=== PATIENT | male | born 1925 | race Caucasian/White ===

== ENCOUNTER 2017-03-28 07:10 | Day surgery (SDC) | payer MEDICARE, BC ==
[~2017-03-28 07:10] MED LIST: Lactated Ringers 1,000 ML IV SCH; Lidocaine 1%/Sod Bicarbonate in NS 8.4% 1 ML Syringe IV PRN; Sodium Chloride 0.9% 10 ML Syringe FLUSH PRN
[2017-03-28] MEDS ORDERED: Heparin Sodium 5,000 Units/ML Vial ONE (07:13)
[2017-03-28] MEDS ORDERED: Sodium Chloride 0.9% 10 ML Syringe FLUSH PRN (07:22)
[2017-03-28] MEDS ORDERED: Lidocaine 1%/Sod Bicarbonate in NS 8.4% 1 ML Syringe PRN (07:22)
--- NOTE | 2017-03-28 07:27 | PCM.PREANE ---
Preanesthetic Assessment - Anesthesia/Transfusion/Family Hx Anesthesia History: Prior Anesthesia Without Reaction Other Type of Anesthesia Reaction Comment: DENIES ANY PROBLEMS WITH ANESTHESIA Family History of Anesthesia Reaction: No Transfusion History: Prior Transfusion Without Reaction Intubation History: Unknown - Review of Systems General: No Symptoms Pulmonary: No Symptoms (Former smoker: quit 1950), Shortness of Breath Cardiovascular: No Symptoms (History of atrial fibrillation/ off plavix since Tuesday03/23/17/CHF/History of HTN/11/24/[address] elevated [place]) Gastrointestinal: No Symptoms (GERD) Neurological: Tingling (arthritis in fingers) Other: Reports: None (History of anemia/History of Hepatitis C/History of Stage IV kidney disease), Easy Bleeding, Easy Bruising, Thyroid Problems (Hypothyroid) , Sinus Problem (seasonal allergies), Anxiety - Physical Assessment NPO Status Date: 03/27/17 NPO Status Time: 19:30 Pulse: 71 O2 Sat by Pulse Oximetry: 99 Respiratory Rate: 16 Blood Pressure: 145/104 Temperature: 36.6 C Height: 1.75 m Weight: 63.503 kg ASA Class: 3 Mental Status: Alert & Oriented x3 Airway Class: Mallampati = 2 Dentition: Reports: Normal Dentition, [place](s), Caries Thyro-Mental Finger Breadths: 3 Mouth Opening Finger Breadths: 3 ROM/Head Extension: Full Lungs: Clear to Auscultation, Normal Respiratory Effort Cardiovascular: Irregular Rhythm (murmur noted.) - Lab Values: Lab values reviewed and noted. Gently IV MAC appropriate with known lab values that are outside of normal limits. Hgb: 8.6 Hct: 25.5 Platelets: 100,000 BUN: 85 Cr: 3.46 Na: 132 K: 3.5 CO2: 22 Cl: 97 glucose: 85 - Imaging/EKG Impressions: EK10/26/2016 SB rate 54, LBBB Echocardiogram: EF: 40-45% - Allergies Allergies/Adverse Reactions: Allergies Allergy/AdvReac Type Severity Reaction Status Date / Time Sulfa (Sulfonamide Allergy Cannot Verified 03/25/17 11:40 Antibiotics) Remember temazepam [From Restoril] Allergy Cannot Verified 03/25/17 11:40 Remember trazodone Allergy Cannot Verified 03/25/17 11:40 Remember - Anesthesia Plan Pre-Op Medication Ordered: Beta Kelly Beta Kelly: Carvedilol Med Last Dose Date: 03/28/17 Med Last Dose Time: 06:00 - Acknowledgements Anesthesia Type Planned: MAC Pt an Appropriate Candidate for the Planned Anesthesia: Yes Alternatives and Risks of Anesthesia Discussed w Pt/Guardian: Yes Pt/Guardian Understands and Agrees with Anesthesia Plan: Yes PreAnesthesia Questionnaire HEENT History: Reports: Cataract, Impaired Vision, Other (See Below) Other HEENT History: blind right eye, hard of hearing, wears glasses, has hearing aids Cardiovascular History: Reports: Afib, Heart Failure, Hypertension Respiratory History: Reports: None Gastrointestinal History: Reports: Hepatitis Genitourinary History: Reports: Renal Disease, Other (See Below) Other Genitourinary History: renal failure, CKD IV, chronic prostatitis [employer] History: Reports: None Neurological History: Reports: None Psychiatric History: Reports: None Endocrine/Metabolic History: Reports: None Hematologic History: Reports: Anemia, Other (See Below) Other Hematologic History: pancytopenia Immunologic History: Reports: None Oncologic (Cancer) History: Reports: None Dermatologic History: Reports: Other (See Below) Other Dermatologic History: psorosis - Past Surgical History HEENT Surgical History: Reports: Cataract Surgery Cardiovascular Surgical History: Reports: None Respiratory Surgical History: Reports: None GI Surgical History: Reports: Appendectomy, Colonoscopy, EGD, Hernia Repair/ Other Female Surgical History: Reports: None Male Surgical History: Reports: None Endocrine Surgical History: Reports: None Neurological Surgical History: Reports: None Musculoskeletal Surgical History: Reports: Knee Replacement, Other (See Below) Other Musculoskeletal Surgeries/Procedures:: right total knee, right rotator cuff repair, kay in leg Oncologic Surgical History: Reports: Bone Marrow Aspiration Dermatological Surgical History: Reports: None - SUBSTANCE USE Smoking Status *Q: Former Smoker Days Per Week of Alcohol Use: 0 Number of Drinks Per Day: 0 Total Drinks Per Week: 0 Recreational Drug Use History: No - HOME MEDS Home Medications: Home Meds ALPRAZolam [Xanax] 0.25 mg PO TID PRN 03/25/17 [History] Acetaminophen/Diphenhydramine [Tylenol Pm Ex-Strength Caplet] 0.5 tab PO BEDTIME PRN 03/25/17 [History] Ascorbate Calcium [Vitamin C] 500 mg PO DAILY 03/25/17 [History] Brimonidine Tartrate/Timolol [Combigan 0.2%-0.5% Eye Drops] 1 drop EYEBOTH TID 03/25/17 [History] Brinzolamide [Azopt 1% Ophth Susp] 1 drop EYEBOTH BID 03/25/17 [History] Calcium Carbonate [Tums] 500 mg PO BID 03/25/17 [History] Carvedilol [Coreg] 3.125 mg PO DAILY 03/25/17 [History] Clopidogrel [Plavix] 75 mg PO DAILY 03/25/17 [History] Ferrous Sulfate 325 mg PO BID 03/25/17 [History] Fluticasone Propionate [Flonase Allergy Relief] 1 spray NASBOTH BID PRN [History] Furosemide 40 mg PO QPM 03/25/17 [History] Furosemide [Lasix] 80 mg PO QAM 03/25/17 [History] Hydrocortisone [Cortisone] 1 applic TOP ASDIRECTED PRN 03/25/17 [History] Isosorbide Mononitrate [Imdur] 30 mg PO DAILY 03/25/17 [History] Levothyroxine [Synthroid] 50 mcg PO DAILY 03/25/17 [History] Lutein/Minerals/Vit A,C & E [Ocuvite] 1 tab PO DAILY 03/25/17 [History] Nitroglycerin [Nitrostat] 0.4 mg SL Q5M PRN MDD pain 03/25/17 [History] Potassium Chloride [Klor-Con 10] 10 meq PO DAILY 03/25/17 [History] Tamsulosin [Flomax] 0.4 mg PO DAILY 03/25/17 [History] Travoprost [Travatan Z] 1 drop EYEBOTH BEDTIME 03/25/17 [History] atorvaSTATin [Lipitor] 40 mg PO DAILY 03/25/17 [History] hydrALAZINE [Apresoline] 25 mg PO BID 03/25/17 [History] - CURRENT (IN HOUSE) MEDS Current Meds: Current Medications Sodium Chloride (Saline Flush) 10 ml FLUSH ASDIRECTED PRN PRN Reason: Keep Vein Open Discontinued Medications Lactated Ringer's (Ringers, Lactated) 1,000 mls @ 125 mls/hr IV ASDIRECTED ESSIE Lidocaine HCl (Xylocaine-Mpf 1%) Confirm Administered Dose 4 mls @ as directed .ROUTE .STK-MED ONE Stop: 10/02/17 07:33 Lidocaine/Sodium Bicarbonate (Buffered Lidocaine 1% In Ns 8.4%) 0.25 ml IV ONETIME PRN PRN Reason: Prior to IV Start Propofol (Diprivan 20 Ml) Confirm Administered Dose 200 mg .ROUTE .STTWINLINX-MED ONE Stop: 03/28/17 07:34
[2017-03-28] MEDS ORDERED: Sodium Chloride 0.9% 1,000 ML IV SCH (07:30)
[2017-03-28] MEDS ORDERED: Lidocaine 1% 2 ML ONE ×3 (07:32→08:39)
[2017-03-28] MEDS ORDERED: Propofol 200 MG/20 ML SDV ONE (07:33)
--- NOTE | 2017-03-28 08:37 | PCM.OPNOTE ---
- General Post-Op/Procedure Note Date of Surgery/Procedure: 03/28/17 Operative Procedure(s): bone marrow bx and aspiration Pre Op Diagnosis: pancytopenia Post-Op Diagnosis: Same Anesthesia Technique: MAC Primary Surgeon: Kenrick Smart EBL in mLs: 0 Complications: None Condition: Good
--- NOTE | 2017-03-28 08:46 | PCM48HPAN ---
Post Anesthesia Note - EVALUATION WITHIN 48HRS OF ANESTHETIC Vital Signs in Normal Range: Yes Patient Participated in Evaluation: Yes Respiratory Function Stable: Yes Airway Patent: Yes Cardiovascular Function Stable: Yes Hydration Status Stable: Yes Pain Control Satisfactory: Yes Nausea and Vomiting Control Satisfactory: Yes Mental Status Recovered: Yes
[2017-03-28 10:12] VITALS: BP 148/81
--- NOTE | 2017-03-29 06:46 | OR ---
DATE OF OPERATION: 03/28/2017 SURGEON: Kenrick Smart MD PREOPERATIVE DIAGNOSIS: Pancytopenia. POSTOPERATIVE DIAGNOSIS: Pancytopenia. OPERATION PERFORMED: Bone marrow biopsy using Jamshidi needle and aspirate under IV sedation. DESCRIPTION OF PROCEDURE: The patient was taken to the endoscopy room, placed in a supine position, connected to monitoring equipment, given IV sedation, and placed in the left lateral position. The posterior iliac spine on the right side was prepped with an aseptic prep with alcohol, draped off in a sterile fashion. Xylocaine 1% was infiltrated in the skin. Incision was made in the skin. Jamshidi needle was then placed on the posterior iliac spine and inserted into the bone marrow. Aspirate was obtained, and this was followed by a bone marrow biopsy. The patient tolerated the procedure. Pressure was placed on the area. The patient was sent to recovery room in a stable condition. ANESTHESIA: IV sedation ESTIMATED BLOOD LOSS: 0 mL. MMODAL /[id number]
== END 2017-03-28 09:45 | disposition home or self-care (01) ==
LOC: JD.SDS 07:10
PROVIDERS: ATTEND Surgery
DX: D61.818 Other pancytopenia (principal); I13.0 Hypertensive heart and chronic kidney disease with heart failure and stage 1 through stage 4 chronic kidney disease, or unspecified chronic kidney disease; N18.4 Chronic kidney disease, stage 4 (severe); I21.4 Non-ST elevation (NSTEMI) myocardial infarction; Z88.2 Allergy status to sulfonamides; Z88.8 Allergy status to other drugs, medicaments and biological substances; Z90.49 Acquired absence of other specified parts of digestive tract; Z98.890 Other specified postprocedural states; Z96.651 Presence of right artificial knee joint; Z79.899 Other long term (current) drug therapy; J30.2 Other seasonal allergic rhinitis; Z87.891 Personal history of nicotine dependence
CPT/HCPCS: 36415; 38220; 38221; 85025; 85045; J1644; J7040; 01112; 88187; 88237; 88262; 88271; 88275; 88305; 88311; 88313; 88341; 88342; J2704